=== PATIENT | female | born 1980 | race Caucasian/White ===

== ENCOUNTER 2018-05-12 16:53 | Inpatient (IN) | payer OTHER ==
[2018-05-12] MEDS ORDERED: NACL 0.9% 3 ML SYG IV (17:30)
[2018-05-12] MEDS ORDERED: ACETAMINOPHEN 325 MG TAB PO (17:30)
[2018-05-12] MEDS: morphine 2 MG INJ IV ×2 (17:54→22:07)
[2018-05-12] MEDS: FERROUS SULFATE (EC) 325 MG TAB PO (17:54)
[2018-05-12] MEDS: NICOTINE (21 MG/24 HR) PATCH TRANSDERM (19:02)
[2018-05-12] MEDS: FAMOTIDINE 20 MG TAB PO (21:28)
[2018-05-12] MEDS: HYDROCODONE/APAP (5/325) TAB PO (23:18)
[2018-05-13 06:04] LABS: ADD MAN DIFF? NO
[2018-05-13 06:06] LABS: BASOPHILS % 0.7 % (0.0-2.0); EOSINOPHILS # 0.1 10^3/ul (0.0-0.5); EOSINOPHILS % 2.2 % (0.0-7.0); HEMATOCRIT 41.1 % (37.0-47.0); HEMOGLOBIN 12.9 g/dl (12.0-16.0); LYMPHOCYTES # 1.1 10^3/ul (0.8-2.9); LYMPHOCYTES % 20.5 % (15.0-51.0); MEAN CORPUSCULAR HEMOGLOBIN 25.3 pg (29.0-33.0); MEAN CORPUSCULAR HGB CONC 31.4 g/dl (32.0-37.0); MEAN CORPUSCULAR VOLUME 80.7 fl (82.0-101.0); MONOCYTE # 0.3 10^3/ul (0.3-0.9); MONOCYTES % 6.1 % (0.0-11.0); NEUTROPHIL # 3.9 10^3/ul (1.6-7.5); NEUTROPHILS % 70.1 % (39.0-77.0); PLATELET COUNT 496 10^3/UL (140-415); RED BLOOD COUNT 5.09 10^6/ul (4.20-5.40); RED CELL DISTRIBUTION WIDTH 12.9 % (11.5-14.5)
[2018-05-13 06:06] LABS: WHITE BLOOD COUNT 5.6 10^3/ul (4.8-10.8)
[2018-05-13 06:29] LABS: IRON 30 ug/dl (35-150)
[2018-05-13 06:31] LABS: ALANINE AMINOTRANSFERASE 241 IU/L (13-69); ALBUMIN 3.4 g/dl (3.3-4.9); ALBUMIN/GLOBULIN RATIO 0.82; ALKALINE PHOSPHATASE 254 IU/L (42-121); ANION GAP 7 (5-13); ASPARTATE AMINO TRANSFERASE 498 IU/L (15-46); BILIRUBIN,INDIRECT 0.2 mg/dl (0-1.1); BILIRUBIN,TOTAL 0.2 mg/dl (0.2-1.3); BLOOD UREA NITROGEN 13 mg/dl (7-20); CALCIUM 8.9 mg/dl (8.4-10.2); CARBON DIOXIDE 31 mmol/L (21-31); CHLORIDE 100 mmol/L (97-110); CREATININE 0.69 mg/dl (0.44-1.00); Estimated GFR > 60 mL/min (>60); GLUCOSE 108 mg/dl (70-220); MAGNESIUM 2.1 mg/dl (1.7-2.5); POTASSIUM 5.1 mmol/L (3.5-5.1); SODIUM 138 mmol/L (135-144); TOTAL PROTEIN 7.5 g/dl (6.1-8.1)
[2018-05-13 06:38] LABS: % IRON SATURATION 11 % SAT (22-52); TOTAL IRON BINDING CAPACITY 275 ug/dl (241-421)
[2018-05-13 06:45] LABS: FREE THYROXINE INDEX (Calc) 2.27 ug/ml (0.65-3.89); T3 UPTAKE 31.1 % (23.5-40.5); T4 (THYROXINE) 7.3 ug/dl (5.5-11.0)
[2018-05-13] MEDS: FERROUS SULFATE (EC) 325 MG TAB PO (09:40)
[2018-05-13] MEDS: NICOTINE (21 MG/24 HR) PATCH TRANSDERM (09:40)
[2018-05-13] MEDS: FAMOTIDINE 20 MG TAB PO ×2 (09:40→20:37)
[2018-05-13] MEDS: morphine 2 MG INJ IV ×3 (09:41→20:38)
[2018-05-13 10:46] LABS: HAAIG REFLEX REFLEX FILED
[2018-05-13 11:36] LABS: HEPATITIS B SURFACE ANTIGEN NEGATIVE (NEGATIVE)
[2018-05-13] MEDS: HYDROCODONE/APAP (5/325) TAB PO ×2 (11:36→18:36)
[2018-05-13 11:54] LABS: HEPATITIS B CORE ANTIBODY NEGATIVE (NEGATIVE); HEPATITIS C VIRAL ANTIBODY NEGATIVE (NEGATIVE)
[2018-05-14] MEDS: morphine 2 MG INJ IV ×4 (01:04→17:13)
[2018-05-14] MEDS: HYDROCODONE/APAP (5/325) TAB PO ×3 (02:20→15:23)
[2018-05-14 06:24] LABS: ADD MAN DIFF? NO
[2018-05-14 06:35] LABS: WHITE BLOOD COUNT 8.2 10^3/ul (4.8-10.8)
[2018-05-14 06:35] LABS: BASOPHIL # 0.1 10^3/ul (0.0-0.1); BASOPHILS % 0.7 % (0.0-2.0); EOSINOPHILS # 0.2 10^3/ul (0.0-0.5); EOSINOPHILS % 2.6 % (0.0-7.0); HEMATOCRIT 40.8 % (37.0-47.0); HEMOGLOBIN 12.9 g/dl (12.0-16.0); LYMPHOCYTES # 1.5 10^3/ul (0.8-2.9); LYMPHOCYTES % 18.1 % (15.0-51.0); MEAN CORPUSCULAR HEMOGLOBIN 25.4 pg (29.0-33.0); MEAN CORPUSCULAR HGB CONC 31.6 g/dl (32.0-37.0); MEAN CORPUSCULAR VOLUME 80.5 fl (82.0-101.0); MEAN PLATELET VOLUME 8.9 fl (7.4-10.4); MONOCYTE # 0.6 10^3/ul (0.3-0.9); MONOCYTES % 6.8 % (0.0-11.0); NEUTROPHIL # 5.9 10^3/ul (1.6-7.5); NEUTROPHILS % 71.3 % (39.0-77.0); PLATELET COUNT 565 10^3/UL (140-415); RED BLOOD COUNT 5.07 10^6/ul (4.20-5.40); RED CELL DISTRIBUTION WIDTH 13.1 % (11.5-14.5)
[2018-05-14 07:21] LABS: ALANINE AMINOTRANSFERASE 278 IU/L (13-69); ALBUMIN 3.5 g/dl (3.3-4.9); ALBUMIN/GLOBULIN RATIO 0.85; ALKALINE PHOSPHATASE 273 IU/L (42-121); ANION GAP 6 (5-13); ASPARTATE AMINO TRANSFERASE 232 IU/L (15-46); BILIRUBIN,INDIRECT 0.2 mg/dl (0-1.1); BILIRUBIN,TOTAL 0.2 mg/dl (0.2-1.3); BLOOD UREA NITROGEN 11 mg/dl (7-20); CALCIUM 8.8 mg/dl (8.4-10.2); CARBON DIOXIDE 31 mmol/L (21-31); CHLORIDE 102 mmol/L (97-110); CREATININE 0.73 mg/dl (0.44-1.00); Estimated GFR > 60 mL/min (>60); GLUCOSE 100 mg/dl (70-220); MAGNESIUM 2.2 mg/dl (1.7-2.5); POTASSIUM 4.7 mmol/L (3.5-5.1); SODIUM 139 mmol/L (135-144); TOTAL PROTEIN 7.6 g/dl (6.1-8.1)
[2018-05-14] MEDS: FAMOTIDINE 20 MG TAB PO ×2 (08:11→21:20)
[2018-05-14] MEDS: FERROUS SULFATE (EC) 325 MG TAB PO (08:11)
[2018-05-14] MEDS: NICOTINE (21 MG/24 HR) PATCH TRANSDERM (08:11)
[2018-05-14] MEDS: HYDROmorphONE 0.5 MG/0.5 ML SYG IV (21:20)
[2018-05-15] MEDS: HYDROmorphONE 0.5 MG/0.5 ML SYG IV ×5 (01:34→18:43)
[2018-05-15 05:30] LABS: ADD MAN DIFF? NO
[2018-05-15 05:48] LABS: BASOPHIL # 0.1 10^3/ul (0.0-0.1); BASOPHILS % 0.6 % (0.0-2.0); EOSINOPHILS # 0.2 10^3/ul (0.0-0.5); EOSINOPHILS % 1.8 % (0.0-7.0); HEMATOCRIT 40.8 % (37.0-47.0); HEMOGLOBIN 12.7 g/dl (12.0-16.0); LYMPHOCYTES % 19.4 % (15.0-51.0); MEAN CORPUSCULAR HEMOGLOBIN 25.3 pg (29.0-33.0); MEAN CORPUSCULAR HGB CONC 31.1 g/dl (32.0-37.0); MEAN CORPUSCULAR VOLUME 81.3 fl (82.0-101.0); MEAN PLATELET VOLUME 8.8 fl (7.4-10.4); MONOCYTE # 0.7 10^3/ul (0.3-0.9); MONOCYTES % 7.4 % (0.0-11.0); PLATELET COUNT 572 10^3/UL (140-415); RED BLOOD COUNT 5.02 10^6/ul (4.20-5.40)
[2018-05-15 06:19] LABS: ALANINE AMINOTRANSFERASE 163 IU/L (13-69); ALBUMIN 3.4 g/dl (3.3-4.9); ALBUMIN/GLOBULIN RATIO 0.85; ALKALINE PHOSPHATASE 214 IU/L (42-121); ANION GAP 8 (5-13); ASPARTATE AMINO TRANSFERASE 84 IU/L (15-46); BILIRUBIN,INDIRECT 0.2 mg/dl (0-1.1); BILIRUBIN,TOTAL 0.2 mg/dl (0.2-1.3); BLOOD UREA NITROGEN 10 mg/dl (7-20); CALCIUM 8.6 mg/dl (8.4-10.2); CARBON DIOXIDE 28 mmol/L (21-31); CHLORIDE 103 mmol/L (97-110); CREATININE 0.73 mg/dl (0.44-1.00); Estimated GFR > 60 mL/min (>60); GLUCOSE 168 mg/dl (70-220); POTASSIUM 4.3 mmol/L (3.5-5.1); SODIUM 139 mmol/L (135-144); TOTAL PROTEIN 7.4 g/dl (6.1-8.1)
[2018-05-15] MEDS: FERROUS SULFATE (EC) 325 MG TAB PO (08:02)
[2018-05-15] MEDS: FAMOTIDINE 20 MG TAB PO ×2 (08:02→20:31)
[2018-05-15] MEDS: HYDROCODONE/APAP (10/325) TAB PO ×2 (08:02→20:35)
[2018-05-15] MEDS: NICOTINE (21 MG/24 HR) PATCH TRANSDERM (08:03)
[2018-05-15] MEDS ORDERED: VANCOMYCIN IV PER PHARMACY XX (18:30)
[2018-05-15] MEDS: CEFEPIME 1GM/50 ML (PMX) 50 ML IVPB (20:28)
[2018-05-15] MEDS: VANCOMYCIN HCL 2 GM in SOD CHLORIDE 0.9% 500 ML IVPB (21:05)
[2018-05-16] MEDS: HYDROmorphONE 0.5 MG/0.5 ML SYG IV ×6 (01:20→22:49)
[2018-05-16 05:23] LABS: ADD MAN DIFF? NO
[2018-05-16 05:30] LABS: BASOPHIL # 0.1 10^3/ul (0.0-0.1); BASOPHILS % 0.5 % (0.0-2.0); EOSINOPHILS # 0.3 10^3/ul (0.0-0.5); EOSINOPHILS % 2.7 % (0.0-7.0); HEMOGLOBIN 13.1 g/dl (12.0-16.0); LYMPHOCYTES # 1.8 10^3/ul (0.8-2.9); LYMPHOCYTES % 16.2 % (15.0-51.0); MEAN CORPUSCULAR HEMOGLOBIN 25.2 pg (29.0-33.0); MEAN CORPUSCULAR HGB CONC 31.2 g/dl (32.0-37.0); MEAN CORPUSCULAR VOLUME 80.8 fl (82.0-101.0); MEAN PLATELET VOLUME 8.9 fl (7.4-10.4); MONOCYTE # 0.7 10^3/ul (0.3-0.9); MONOCYTES % 6.3 % (0.0-11.0); NEUTROPHIL # 8.1 10^3/ul (1.6-7.5); NEUTROPHILS % 73.5 % (39.0-77.0); PLATELET COUNT 567 10^3/UL (140-415); RED CELL DISTRIBUTION WIDTH 13.2 % (11.5-14.5)
[2018-05-16 05:50] LABS: ALANINE AMINOTRANSFERASE 96 IU/L (13-69); ALBUMIN 3.4 g/dl (3.3-4.9); ALBUMIN/GLOBULIN RATIO 0.85; ALKALINE PHOSPHATASE 172 IU/L (42-121); ANION GAP 8 (5-13); ASPARTATE AMINO TRANSFERASE 34 IU/L (15-46); BILIRUBIN,INDIRECT 0.1 mg/dl (0-1.1); BILIRUBIN,TOTAL 0.1 mg/dl (0.2-1.3); BLOOD UREA NITROGEN 12 mg/dl (7-20); CALCIUM 8.9 mg/dl (8.4-10.2); CARBON DIOXIDE 32 mmol/L (21-31); CHLORIDE 98 mmol/L (97-110); CREATININE 0.73 mg/dl (0.44-1.00); Estimated GFR > 60 mL/min (>60); GLUCOSE 114 mg/dl (70-220); POTASSIUM 4.8 mmol/L (3.5-5.1); SODIUM 138 mmol/L (135-144); TOTAL PROTEIN 7.4 g/dl (6.1-8.1)
[2018-05-16] MEDS: HYDROCODONE/APAP (10/325) TAB PO ×2 (08:36→21:42)
[2018-05-16] MEDS: CEFEPIME 1GM/50 ML (PMX) 50 ML IVPB ×2 (09:00→20:36)
[2018-05-16] MEDS: FAMOTIDINE 20 MG TAB PO ×2 (09:01→20:35)
[2018-05-16] MEDS: NICOTINE (21 MG/24 HR) PATCH TRANSDERM (09:01)
[2018-05-16] MEDS: FERROUS SULFATE (EC) 325 MG TAB PO (09:01)
[2018-05-16] MEDS: VANCOMYCIN HCL 1.5 GM in SOD CHLORIDE 0.9% 250 ML IVPB ×2 (09:50→21:36)
[2018-05-16 13:12] LABS: HIV 1&2 ANTIBODY NEGATIVE (NEGATIVE)
[2018-05-17] MEDS: HYDROmorphONE 0.5 MG/0.5 ML SYG IV ×5 (03:55→21:35)
[2018-05-17 05:18] LABS: ADD MAN DIFF? NO
[2018-05-17 05:31] LABS: WHITE BLOOD COUNT 10.8 10^3/ul (4.8-10.8)
[2018-05-17 05:31] LABS: BASOPHIL # 0.1 10^3/ul (0.0-0.1); BASOPHILS % 0.6 % (0.0-2.0); EOSINOPHILS # 0.3 10^3/ul (0.0-0.5); EOSINOPHILS % 2.7 % (0.0-7.0); HEMATOCRIT 40.3 % (37.0-47.0); HEMOGLOBIN 12.5 g/dl (12.0-16.0); LYMPHOCYTES # 1.8 10^3/ul (0.8-2.9); LYMPHOCYTES % 16.9 % (15.0-51.0); MEAN CORPUSCULAR HEMOGLOBIN 25.3 pg (29.0-33.0); MEAN CORPUSCULAR VOLUME 81.4 fl (82.0-101.0); MEAN PLATELET VOLUME 9.2 fl (7.4-10.4); MONOCYTE # 0.7 10^3/ul (0.3-0.9); MONOCYTES % 6.7 % (0.0-11.0); NEUTROPHIL # 7.8 10^3/ul (1.6-7.5); NEUTROPHILS % 72.4 % (39.0-77.0); PLATELET COUNT 551 10^3/UL (140-415); RED BLOOD COUNT 4.95 10^6/ul (4.20-5.40); RED CELL DISTRIBUTION WIDTH 13.2 % (11.5-14.5)
[2018-05-17 06:32] LABS: ANION GAP 8 (5-13); BLOOD UREA NITROGEN 13 mg/dl (7-20); CALCIUM 8.6 mg/dl (8.4-10.2); CARBON DIOXIDE 32 mmol/L (21-31); CHLORIDE 99 mmol/L (97-110); CREATININE 0.67 mg/dl (0.44-1.00); Estimated GFR > 60 mL/min (>60); GLUCOSE 117 mg/dl (70-220); MAGNESIUM 2.1 mg/dl (1.7-2.5); PHOSPHORUS 4.6 mg/dl (2.5-4.9); POTASSIUM 4.5 mmol/L (3.5-5.1); SODIUM 139 mmol/L (135-144)
[2018-05-17] MEDS: FERROUS SULFATE (EC) 325 MG TAB PO (08:57)
[2018-05-17] MEDS: FAMOTIDINE 20 MG TAB PO ×2 (08:57→21:35)
[2018-05-17] MEDS: NICOTINE (21 MG/24 HR) PATCH TRANSDERM (08:58)
[2018-05-17] MEDS: CEFEPIME 1GM/50 ML (PMX) 50 ML IVPB ×2 (08:58→21:34)
[2018-05-17 09:27] LABS: VANCOMYCIN,TROUGH 10.1 ug/ml (10.0-20.0)
[2018-05-17] MEDS: VANCOMYCIN HCL 1.5 GM in SOD CHLORIDE 0.9% 250 ML IVPB (10:12)
[2018-05-17] MEDS: HYDROCODONE/APAP (10/325) TAB PO (15:51)
[2018-05-17] MEDS: VANCOMYCIN HCL 1.75 GM in SOD CHLORIDE 0.9% 500 ML IVPB (23:05)
[2018-05-18] MEDS: HYDROmorphONE 0.5 MG/0.5 ML SYG IV ×6 (02:10→22:54)
[2018-05-18 05:44] LABS: ADD MAN DIFF? NO
[2018-05-18 06:08] LABS: BASOPHIL # 0.1 10^3/ul (0.0-0.1); BASOPHILS % 0.6 % (0.0-2.0); EOSINOPHILS # 0.3 10^3/ul (0.0-0.5); EOSINOPHILS % 3.1 % (0.0-7.0); HEMATOCRIT 39.9 % (37.0-47.0); HEMOGLOBIN 12.2 g/dl (12.0-16.0); LYMPHOCYTES # 1.7 10^3/ul (0.8-2.9); LYMPHOCYTES % 19.5 % (15.0-51.0); MEAN CORPUSCULAR HEMOGLOBIN 24.8 pg (29.0-33.0); MEAN CORPUSCULAR HGB CONC 30.6 g/dl (32.0-37.0); MEAN CORPUSCULAR VOLUME 81.3 fl (82.0-101.0); MONOCYTE # 0.5 10^3/ul (0.3-0.9); MONOCYTES % 5.7 % (0.0-11.0); NEUTROPHIL # 6.1 10^3/ul (1.6-7.5); NEUTROPHILS % 70.4 % (39.0-77.0); PLATELET COUNT 574 10^3/UL (140-415); RED BLOOD COUNT 4.91 10^6/ul (4.20-5.40); RED CELL DISTRIBUTION WIDTH 13.5 % (11.5-14.5)
[2018-05-18 06:08] LABS: WHITE BLOOD COUNT 8.6 10^3/ul (4.8-10.8)
[2018-05-18 06:21] LABS: ANION GAP 7 (5-13); BLOOD UREA NITROGEN 15 mg/dl (7-20); CALCIUM 8.6 mg/dl (8.4-10.2); CARBON DIOXIDE 31 mmol/L (21-31); CHLORIDE 100 mmol/L (97-110); CREATININE 0.67 mg/dl (0.44-1.00); Estimated GFR > 60 mL/min (>60); GLUCOSE 119 mg/dl (70-220); PHOSPHORUS 4.2 mg/dl (2.5-4.9); POTASSIUM 4.7 mmol/L (3.5-5.1); SODIUM 138 mmol/L (135-144)
[2018-05-18] MEDS: FERROUS SULFATE (EC) 325 MG TAB PO (08:47)
[2018-05-18] MEDS: FAMOTIDINE 20 MG TAB PO ×2 (08:47→20:11)
[2018-05-18] MEDS: CEFEPIME 1GM/50 ML (PMX) 50 ML IVPB ×2 (08:47→20:11)
[2018-05-18] MEDS: NICOTINE (21 MG/24 HR) PATCH TRANSDERM (08:48)
[2018-05-18] MEDS: HYDROCODONE/APAP (10/325) TAB PO ×2 (08:59→18:11)
[2018-05-18] MEDS: VANCOMYCIN HCL 1.75 GM in SOD CHLORIDE 0.9% 500 ML IVPB ×2 (10:10→22:05)
[2018-05-19] MEDS: HYDROmorphONE 0.5 MG/0.5 ML SYG IV ×4 (03:22→18:23)
[2018-05-19 06:12] LABS: ADD MAN DIFF? NO
[2018-05-19 06:17] LABS: BASOPHIL # 0.1 10^3/ul (0.0-0.1); BASOPHILS % 0.6 % (0.0-2.0); EOSINOPHILS # 0.3 10^3/ul (0.0-0.5); EOSINOPHILS % 3.7 % (0.0-7.0); HEMATOCRIT 40.9 % (37.0-47.0); HEMOGLOBIN 12.4 g/dl (12.0-16.0); LYMPHOCYTES # 1.9 10^3/ul (0.8-2.9); LYMPHOCYTES % 22.8 % (15.0-51.0); MEAN CORPUSCULAR HEMOGLOBIN 24.9 pg (29.0-33.0); MEAN CORPUSCULAR HGB CONC 30.3 g/dl (32.0-37.0); MEAN CORPUSCULAR VOLUME 82.1 fl (82.0-101.0); MONOCYTE # 0.5 10^3/ul (0.3-0.9); MONOCYTES % 6.5 % (0.0-11.0); NEUTROPHIL # 5.3 10^3/ul (1.6-7.5); NEUTROPHILS % 65.8 % (39.0-77.0); PLATELET COUNT 548 10^3/UL (140-415); RED BLOOD COUNT 4.98 10^6/ul (4.20-5.40); RED CELL DISTRIBUTION WIDTH 13.2 % (11.5-14.5)
[2018-05-19 06:17] LABS: WHITE BLOOD COUNT 8.1 10^3/ul (4.8-10.8)
[2018-05-19] MEDS: HYDROCODONE/APAP (10/325) TAB PO ×2 (06:34→16:41)
[2018-05-19 07:03] LABS: ANION GAP 9 (5-13); BLOOD UREA NITROGEN 16 mg/dl (7-20); CALCIUM 8.7 mg/dl (8.4-10.2); CARBON DIOXIDE 29 mmol/L (21-31); CHLORIDE 101 mmol/L (97-110); CREATININE 0.69 mg/dl (0.44-1.00); Estimated GFR > 60 mL/min (>60); GLUCOSE 104 mg/dl (70-220); MAGNESIUM 2.1 mg/dl (1.7-2.5); PHOSPHORUS 4.4 mg/dl (2.5-4.9); POTASSIUM 4.9 mmol/L (3.5-5.1); SODIUM 139 mmol/L (135-144)
[2018-05-19] MEDS: FERROUS SULFATE (EC) 325 MG TAB PO (08:10)
[2018-05-19] MEDS: FAMOTIDINE 20 MG TAB PO ×2 (08:10→20:30)
[2018-05-19] MEDS: CEFEPIME 1GM/50 ML (PMX) 50 ML IVPB ×2 (08:10→20:30)
[2018-05-19] MEDS: NICOTINE (21 MG/24 HR) PATCH TRANSDERM (08:10)
[2018-05-19 10:05] LABS: VANCOMYCIN,TROUGH 20.4 ug/ml (10.0-20.0)
[2018-05-19] MEDS: VANCOMYCIN HCL 1.25 GM in SOD CHLORIDE 0.9% 250 ML IVPB (13:49)
[2018-05-19] MEDS ORDERED: VANCOMYCIN HCL 1.5 GM in SOD CHLORIDE 0.9% 250 ML IVPB (14:00)
[2018-05-20] MEDS: HYDROmorphONE 0.5 MG/0.5 ML SYG IV ×3 (00:39→10:00)
[2018-05-20] MEDS: VANCOMYCIN HCL 1.25 GM in SOD CHLORIDE 0.9% 250 ML IVPB ×2 (00:56→13:18)
[2018-05-20] MEDS: HYDROCODONE/APAP (10/325) TAB PO (01:40)
[2018-05-20] MEDS: NICOTINE (21 MG/24 HR) PATCH TRANSDERM (09:10)
[2018-05-20] MEDS: FAMOTIDINE 20 MG TAB PO ×2 (09:10→20:04)
[2018-05-20] MEDS: FERROUS SULFATE (EC) 325 MG TAB PO (09:10)
[2018-05-20] MEDS: CEFEPIME 1GM/50 ML (PMX) 50 ML IVPB ×2 (09:13→20:05)
[2018-05-20] MEDS ORDERED: LIDOCAINE 1% (MPF) 5 ML VIAL SC (12:00)
[2018-05-20] MEDS: OXYCODONE/ACETAMINOPHEN (10/325) TAB PO ×2 (13:47→20:04)
[2018-05-21] MEDS: VANCOMYCIN HCL 1.25 GM in SOD CHLORIDE 0.9% 250 ML IVPB (01:10)
[2018-05-21] MEDS: OXYCODONE/ACETAMINOPHEN (10/325) TAB PO ×2 (04:17→10:45)
[2018-05-21 05:23] LABS: ADD MAN DIFF? NO
[2018-05-21 05:30] LABS: WHITE BLOOD COUNT 8.3 10^3/ul (4.8-10.8)
[2018-05-21 05:30] LABS: BASOPHIL # 0.1 10^3/ul (0.0-0.1); EOSINOPHILS # 0.2 10^3/ul (0.0-0.5); EOSINOPHILS % 2.8 % (0.0-7.0); HEMATOCRIT 38.6 % (37.0-47.0); HEMOGLOBIN 12.1 g/dl (12.0-16.0); LYMPHOCYTES # 2.1 10^3/ul (0.8-2.9); LYMPHOCYTES % 25.1 % (15.0-51.0); MEAN CORPUSCULAR HEMOGLOBIN 25.2 pg (29.0-33.0); MEAN CORPUSCULAR HGB CONC 31.3 g/dl (32.0-37.0); MEAN CORPUSCULAR VOLUME 80.4 fl (82.0-101.0); MEAN PLATELET VOLUME 8.7 fl (7.4-10.4); MONOCYTE # 0.4 10^3/ul (0.3-0.9); MONOCYTES % 4.3 % (0.0-11.0); NEUTROPHIL # 5.5 10^3/ul (1.6-7.5); NEUTROPHILS % 66.2 % (39.0-77.0); PLATELET COUNT 553 10^3/UL (140-415); RED CELL DISTRIBUTION WIDTH 13.2 % (11.5-14.5)
[2018-05-21 06:02] LABS: ANION GAP 8 (5-13); BLOOD UREA NITROGEN 16 mg/dl (7-20); CALCIUM 8.9 mg/dl (8.4-10.2); CARBON DIOXIDE 33 mmol/L (21-31); CHLORIDE 99 mmol/L (97-110); CREATININE 0.73 mg/dl (0.44-1.00); Estimated GFR > 60 mL/min (>60); GLUCOSE 138 mg/dl (70-220); MAGNESIUM 1.9 mg/dl (1.7-2.5); PHOSPHORUS 4.3 mg/dl (2.5-4.9); POTASSIUM 4.6 mmol/L (3.5-5.1); SODIUM 140 mmol/L (135-144)
[2018-05-21] MEDS: CEFEPIME 1GM/50 ML (PMX) 50 ML IVPB ×2 (08:56→20:00)
[2018-05-21] MEDS: FERROUS SULFATE (EC) 325 MG TAB PO (08:56)
[2018-05-21] MEDS: FAMOTIDINE 20 MG TAB PO ×2 (08:56→20:00)
[2018-05-21] MEDS: NICOTINE (21 MG/24 HR) PATCH TRANSDERM (10:44)
[2018-05-21 12:34] LABS: CREATININE 0.82 mg/dl (0.44-1.00)
[2018-05-21 12:34] LABS: BLOOD UREA NITROGEN 18 mg/dl (7-20)
[2018-05-21 12:39] LABS: VANCOMYCIN,TROUGH 10.5 ug/ml (10.0-20.0)
[2018-05-21] MEDS: VANCOMYCIN HCL 1.5 GM in SOD CHLORIDE 0.9% 250 ML IVPB (15:26)
[2018-05-21] MEDS: HYDROCODONE/APAP (10/325) TAB PO ×2 (15:34→20:00)
[2018-05-21] MEDS: OXYCODONE/ACETAMINOPHEN (5/325) TAB PO ×2 (18:07→22:07)
[2018-05-22] MEDS: VANCOMYCIN HCL 1.5 GM in SOD CHLORIDE 0.9% 250 ML IVPB ×2 (01:56→14:46)
[2018-05-22] MEDS: HYDROCODONE/APAP (10/325) TAB PO ×2 (03:41→22:54)
[2018-05-22 04:44] LABS: ADD MAN DIFF? NO
[2018-05-22 04:46] LABS: BASOPHIL # 0.1 10^3/ul (0.0-0.1); BASOPHILS % 0.7 % (0.0-2.0); EOSINOPHILS # 0.3 10^3/ul (0.0-0.5); EOSINOPHILS % 3.1 % (0.0-7.0); HEMATOCRIT 37.8 % (37.0-47.0); HEMOGLOBIN 11.9 g/dl (12.0-16.0); LYMPHOCYTES # 2.4 10^3/ul (0.8-2.9); LYMPHOCYTES % 25.1 % (15.0-51.0); MEAN CORPUSCULAR HEMOGLOBIN 25.4 pg (29.0-33.0); MEAN CORPUSCULAR HGB CONC 31.5 g/dl (32.0-37.0); MEAN CORPUSCULAR VOLUME 80.6 fl (82.0-101.0); MEAN PLATELET VOLUME 8.9 fl (7.4-10.4); MONOCYTE # 0.5 10^3/ul (0.3-0.9); MONOCYTES % 5.6 % (0.0-11.0); NEUTROPHIL # 6.1 10^3/ul (1.6-7.5); NEUTROPHILS % 64.6 % (39.0-77.0); PLATELET COUNT 471 10^3/UL (140-415); RED BLOOD COUNT 4.69 10^6/ul (4.20-5.40); RED CELL DISTRIBUTION WIDTH 13.6 % (11.5-14.5)
[2018-05-22 04:46] LABS: WHITE BLOOD COUNT 9.4 10^3/ul (4.8-10.8)
[2018-05-22 05:06] LABS: ANION GAP 7 (5-13); BLOOD UREA NITROGEN 19 mg/dl (7-20); CALCIUM 8.6 mg/dl (8.4-10.2); CARBON DIOXIDE 31 mmol/L (21-31); CHLORIDE 100 mmol/L (97-110); CREATININE 0.66 mg/dl (0.44-1.00); Estimated GFR > 60 mL/min (>60); GLUCOSE 104 mg/dl (70-220); MAGNESIUM 1.9 mg/dl (1.7-2.5); PHOSPHORUS 4.9 mg/dl (2.5-4.9); POTASSIUM 4.5 mmol/L (3.5-5.1); SODIUM 138 mmol/L (135-144)
[2018-05-22] MEDS: OXYCODONE/ACETAMINOPHEN (5/325) TAB PO ×3 (06:10→18:18)
[2018-05-22] MEDS: FAMOTIDINE 20 MG TAB PO ×2 (08:32→20:23)
[2018-05-22] MEDS: NICOTINE (21 MG/24 HR) PATCH TRANSDERM (08:32)
[2018-05-22] MEDS: FERROUS SULFATE (EC) 325 MG TAB PO (08:32)
[2018-05-22] MEDS: CEFEPIME 1GM/50 ML (PMX) 50 ML IVPB ×2 (08:32→20:23)
[2018-05-22] MEDS: SOD CHLORIDE 0.9% 100 ML (10:31)
[2018-05-22] MEDS: IOHEXOL 300MG/ML 150 ML BTL (10:32)
[2018-05-22] MEDS: HYDROmorphONE 0.5 MG/0.5 ML SYG IV (13:30)
[2018-05-22] MEDS: ONDANSETRON 4 MG INJ IV (13:30)
[2018-05-22 15:00] LABS: TROPONIN-I < 0.012 ng/ml (0.000-0.120)
[2018-05-22] MEDS: MAGNESIUM HYDROXIDE 30ML CUP PO (18:18)
[2018-05-22 21:23] LABS: TROPONIN-I < 0.012 ng/ml (0.000-0.120)
[2018-05-23] MEDS: VANCOMYCIN HCL 1.5 GM in SOD CHLORIDE 0.9% 250 ML IVPB ×2 (02:18→14:19)
[2018-05-23 03:59] LABS: TROPONIN-I < 0.012 ng/ml (0.000-0.120)
[2018-05-23 05:52] LABS: ADD MAN DIFF? NO
[2018-05-23 05:56] LABS: WHITE BLOOD COUNT 7.6 10^3/ul (4.8-10.8)
[2018-05-23 05:56] LABS: BASOPHIL # 0.1 10^3/ul (0.0-0.1); BASOPHILS % 0.8 % (0.0-2.0); EOSINOPHILS # 0.2 10^3/ul (0.0-0.5); EOSINOPHILS % 2.9 % (0.0-7.0); HEMATOCRIT 37.5 % (37.0-47.0); HEMOGLOBIN 11.6 g/dl (12.0-16.0); LYMPHOCYTES # 1.6 10^3/ul (0.8-2.9); LYMPHOCYTES % 21.3 % (15.0-51.0); MEAN CORPUSCULAR HEMOGLOBIN 25.1 pg (29.0-33.0); MEAN CORPUSCULAR HGB CONC 30.9 g/dl (32.0-37.0); MONOCYTE # 0.5 10^3/ul (0.3-0.9); NEUTROPHIL # 5.2 10^3/ul (1.6-7.5); NEUTROPHILS % 68.3 % (39.0-77.0); PLATELET COUNT 488 10^3/UL (140-415); RED BLOOD COUNT 4.63 10^6/ul (4.20-5.40); RED CELL DISTRIBUTION WIDTH 13.6 % (11.5-14.5)
[2018-05-23 06:42] LABS: ANION GAP 7 (5-13); BLOOD UREA NITROGEN 15 mg/dl (7-20); CALCIUM 8.7 mg/dl (8.4-10.2); CARBON DIOXIDE 32 mmol/L (21-31); CHLORIDE 100 mmol/L (97-110); CREATININE 0.66 mg/dl (0.44-1.00); Estimated GFR > 60 mL/min (>60); GLUCOSE 99 mg/dl (70-220); MAGNESIUM 2.2 mg/dl (1.7-2.5); PHOSPHORUS 4.5 mg/dl (2.5-4.9); SODIUM 139 mmol/L (135-144)
[2018-05-23 06:59] LABS: POTASSIUM 4.3 mmol/L (3.5-5.1)
[2018-05-23] MEDS: CEFEPIME 1GM/50 ML (PMX) 50 ML IVPB ×2 (08:37→20:40)
[2018-05-23] MEDS: FERROUS SULFATE (EC) 325 MG TAB PO (08:37)
[2018-05-23] MEDS: FAMOTIDINE 20 MG TAB PO ×2 (08:37→20:40)
[2018-05-23] MEDS: NICOTINE (21 MG/24 HR) PATCH TRANSDERM (08:37)
[2018-05-23] MEDS: OXYCODONE/ACETAMINOPHEN (5/325) TAB PO (09:21)
[2018-05-23] MEDS: ONDANSETRON 4 MG INJ IV (09:21)
[2018-05-23] MEDS: NICOTINE POLACRILEX 2 MG GUM BUCCAL (12:26)
[2018-05-23] MEDS: LORAZEPAM 2 MG INJ IV (16:23)
[2018-05-23] MEDS: OXYCODONE/ACETAMINOPHEN (10/325) TAB PO ×2 (18:11→22:26)
[2018-05-24 01:23] LABS: VANCOMYCIN,TROUGH 14.9 ug/ml (10.0-20.0)
[2018-05-24] MEDS: VANCOMYCIN HCL 1.5 GM in SOD CHLORIDE 0.9% 250 ML IVPB ×2 (02:33→15:19)
[2018-05-24] MEDS: OXYCODONE/ACETAMINOPHEN (10/325) TAB PO ×3 (02:33→17:01)
[2018-05-24] MEDS: ALTEPLASE (CATHFLO) 2 MG INJ CATHETER (03:26)
[2018-05-24 06:48] LABS: ALANINE AMINOTRANSFERASE 103 IU/L (13-69); ALBUMIN 2.8 g/dl (3.3-4.9); ALKALINE PHOSPHATASE 78 IU/L (42-121); ANION GAP 5 (5-13); ASPARTATE AMINO TRANSFERASE 80 IU/L (15-46); BILIRUBIN,INDIRECT 0.1 mg/dl (0-1.1); BILIRUBIN,TOTAL 0.1 mg/dl (0.2-1.3); BLOOD UREA NITROGEN 18 mg/dl (7-20); CALCIUM 7.2 mg/dl (8.4-10.2); CARBON DIOXIDE 27 mmol/L (21-31); CHLORIDE 109 mmol/L (97-110); Estimated GFR > 60 mL/min (>60); GLUCOSE 104 mg/dl (70-220); MAGNESIUM 1.6 mg/dl (1.7-2.5); POTASSIUM 4.2 mmol/L (3.5-5.1); SODIUM 141 mmol/L (135-144); TOTAL PROTEIN 6.3 g/dl (6.1-8.1)
[2018-05-24] MEDS: FAMOTIDINE 20 MG TAB PO (08:13)
[2018-05-24] MEDS: FERROUS SULFATE (EC) 325 MG TAB PO (08:13)
[2018-05-24] MEDS: CEFEPIME 1GM/50 ML (PMX) 50 ML IVPB (08:13)
[2018-05-24] MEDS: NICOTINE (21 MG/24 HR) PATCH TRANSDERM (08:14)
[2018-05-24] MEDS: DOCUSATE SODIUM 100 MG CAP PO (08:34)
[2018-05-24] MEDS: MAGNESIUM SULFATE 2 GM/50 ML 50 ML IVPB (09:30)
[2018-05-24] MEDS: metroNIDAZOLE 500 MG TAB PO (15:18)
== END 2018-05-24 19:00 | DRG 540 ==
LOC: 2NE 16:53
PROC: 02HV33Z Insertion of Infusion Device into Superior Vena Cava, Percutaneous Approach (ICD-10-PCS; principal; 2018-05-21)
PROC: B54MZZA Ultrasonography of Right Upper Extremity Veins, Guidance (ICD-10-PCS; 2018-05-21)
DX: M86.8X8 Other osteomyelitis, other site (principal); Z68.42 Body mass index [BMI] 45.0-49.9, adult; M00.9 Pyogenic arthritis, unspecified; F15.10 Other stimulant abuse, uncomplicated; E66.01 Morbid (severe) obesity due to excess calories; D50.9 Iron deficiency anemia, unspecified; F17.200 Nicotine dependence, unspecified, uncomplicated; R74.0 Nonspecific elevation of levels of transaminase and lactic acid dehydrogenase [LDH]; M60.9 Myositis, unspecified
CPT/HCPCS: 36569; 70542; 71045; 71046; 73200; 76536; 76705; 76937; 80048; 80053; 80202; 82565; 83540; 83735; 84100; 84436; 84443; 84479; 84484; 84520; 84703; 85025; 86703; 86704; 86709; 86803; 87040-91; 87340; 93005